=== PATIENT | male | born 1960 | race Caucasian/White ===

== ENCOUNTER 2019-01-03 07:43 | Day surgery (SDC) | payer MEDICARE, BC, OTHER ==
[~2019-01-03] VITALS: Ht 177.8 cm; Wt 78.7 kg
[~2019-01-03 07:43] MED LIST: HYDR-3713 PO; NS 1,000 ML IV ONE; PRAV20TA2 PO; RANI15TA PO; TIZA2TAB4 PO; XANA0.25 PO
--- NOTE | 2019-01-03 09:27 | ROOR ---
Patient Name: Yonny Willard Procedure Date: 01/03/2019 8:44 AM Date of : 1960 Age: 58 Room: [facility] Gender: Male Note Status: Finalized Procedure: Colonoscopy Indications: High risk colon cancer surveillance: Personal history of colonic polyps Providers: Marshall Hamilton MD Referring MD: Brittani MCNALLY MD Requesting Provider: Medicines: Monitored Anesthesia Care Complications: No immediate complications. Procedure: Pre-Anesthesia Assessment: - Prior to the procedure, a History and Physical was performed, and patient medications and allergies were reviewed. The patient is competent. The risks and benefits of the procedure and the sedation options and risks were discussed with the patient. All questions were answered and informed consent was obtained. Patient identification and proposed procedure were verified by the physician, the nurse and the anesthesiologist in the procedure room. Mental Status Examination: alert and oriented. Airway Examination: normal oropharyngeal airway and neck mobility. Respiratory Examination: clear to auscultation. CV Examination: normal. Prophylactic Antibiotics: The patient does not require prophylactic antibiotics. Prior Anticoagulants: The patient has taken no previous anticoagulant or antiplatelet agents. ASA Grade Assessment: II - A patient with mild systemic disease. After reviewing the risks and benefits, the patient was deemed in satisfactory condition to undergo the procedure. The anesthesia plan was to use monitored anesthesia care (MAC). Immediately prior to administration of medications, the patient was re-assessed for adequacy to receive sedatives. The heart rate, respiratory rate, oxygen saturations, blood pressure, adequacy of pulmonary ventilation, and response to care were monitored throughout the procedure. The physical status of the patient was re-assessed after the procedure. The Colonoscope was introduced through the anus and advanced to the cecum, identified by appendiceal orifice and ileocecal valve. The colonoscopy was performed without difficulty. The patient tolerated the procedure well. The quality of the bowel preparation was adequate to identify polyps 6 mm and larger in size and fair. The ileocecal valve, appendiceal orifice, and rectum were photographed. Scope insertion time was 3 minutes. Scope withdrawal time was 12 minutes. The total duration of the procedure was 15 minutes. Findings: The perianal and digital rectal examinations were normal. Multiple small and large-mouthed diverticula were found from sigmoid to descending colon. Priya-diverticular erythema was seen. There was no evidence of diverticular bleeding. Non-bleeding external and internal hemorrhoids were found during retroflexion. The hemorrhoids were medium-sized. Impression: - Preparation of the colon was fair. - Severe diverticulosis from sigmoid to descending colon. Priya-diverticular erythema was seen. There was no evidence of diverticular bleeding. - Non-bleeding external and internal hemorrhoids. - No specimens collected. Recommendation: - Patient has a contact number available for emergencies. The signs and symptoms of potential delayed complications were discussed with the patient. Return to normal activities tomorrow. Written discharge instructions were provided to the patient. - High fiber diet. - Continue present medications. - Repeat colonoscopy in 5 years for screening purposes and due to family history of colon cancer. - Return to GI clinic in 5 years. - Return to primary care physician. Marshall Hamilton MD Marshall Hamilton MD 01/03/2019 9:26:38 AM Electronically signed by Marshall Hamilton MD Number of Addenda: 0 Note Initiated On: 01/03/2019 8:44 AM Estimated Blood Loss: Estimated blood loss: none.
[2019-01-03] MEDS ORDERED: PROPOFOL 500 MG/50 ML VIAL As Ordered ONE (09:34)
[2019-01-03] MEDS ORDERED: LIDOCAINE 2% INJ 100 MG/5 ML SDV (FOR ANES.) As Ordered ONE (09:34)
[2019-01-03 09:53] VITALS: BP 130/75
== END 2019-01-03 10:10 | disposition home or self-care (01) ==
LOC: M OPP 07:43
PROVIDERS: ATTEND Internal Medicine Gastroenterology
DX: K57.30 Diverticulosis of large intestine without perforation or abscess without bleeding (principal); K64.8 Other hemorrhoids; Z86.010 Personal history of colon polyps

== ENCOUNTER 2022-12-18 10:25 | Day surgery (SDC) | payer MEDICARE, BC, OTHER ==
[~2022-12-18] VITALS: Ht 177.8 cm; Wt 78.5 kg
[~2022-12-18 10:25] MED LIST changes: +ALPR0.5T3 PO; +ATOR40TA75 PO; +MELO15TA28 PO; +METO1TAB87 PO; -NS 1,000 ML IV ONE; +TIZA1TAB12 PO; -TIZA2TAB4 PO; +TRAZ-252 PO
[2022-12-18] MEDS ORDERED: propofoL 200 MG/20 ML VIAL As Ordered ONE (12:24)
[2022-12-18 13:15] VITALS: BP 144/83
== END 2022-12-18 13:30 | disposition home or self-care (01) ==
LOC: M OPP 10:25
PROVIDERS: ATTEND Internal Medicine Gastroenterology
DX: D12.6 Benign neoplasm of colon, unspecified (principal); K57.30 Diverticulosis of large intestine without perforation or abscess without bleeding; K64.8 Other hemorrhoids; K64.4 Residual hemorrhoidal skin tags; Z80.0 Family history of malignant neoplasm of digestive organs; R10.30 Lower abdominal pain, unspecified; L29.0 Pruritus ani